=== PATIENT | female | born 1985 | race Caucasian/White ===

== ENCOUNTER → 2021-03-09 | Outpatient (CLI) | payer OTHER | LOC: COL.RAD 03-06 09:00 | DX: R10.11 Right upper quadrant pain (principal) ==

== ENCOUNTER → 2021-03-23 | Outpatient (CLI) | payer OTHER | LOC: COL.RAD 06:38 | DX: K82.8 Other specified diseases of gallbladder (principal) | CPT/HCPCS: A9537; J2805 ==

== ENCOUNTER 2021-04-08 07:36 | Day surgery (SDC) | payer OTHER ==
[~2021-04-08] VITALS: Ht 165.1 cm; Wt 56.8 kg
[2021-04-08] MEDS ORDERED: DECADRON 4MG TAB4 MG PO (08:14)
[2021-04-08] MEDS ORDERED: LEVSIN 0.10.125 MG/T PO (08:14)
[2021-04-08] MEDS ORDERED: PROTONIX 40MG T40 MG PO (08:14)
[2021-04-08 08:15] VITALS: BP 104/68; PULSE 75; TEMP 97.9
[2021-04-08 09:10] VITALS: BP 117/77; PULSE 85; TEMP 97.3
--- NOTE | 2021-04-08 09:10 | NUR ---
The patient arrived back to [facility] from the endoscopy suite at this time. The patient ambulated from the cart to the recliner in her room with the stand by assistance of one nurse and appeared to tolerate the activity well. Vital signs were started at this time. The patient agrees to try some ice water at this time. Call light is within reach. Will continue to monitor the patient.
[2021-04-08 09:25] VITALS: BP 118/83; PULSE 72
--- NOTE | 2021-04-08 09:25 | NUR ---
The patient appears to be tolerating the water well and denies wanting anything further to eat or drink at this time. Will continue to monitor the patient.
[2021-04-08 09:40] VITALS: BP 114/86; PULSE 77
--- NOTE | 2021-04-08 09:40 | NUR ---
Dr. Galvin is at the patient's bedside speaking with the patient and her father regarding the findings of the procedure. Will continue to monitor the patient.
[2021-04-08 09:55] VITALS: BP 121/73; PULSE 80
--- NOTE | 2021-04-08 09:55 | NUR ---
Dicharge instructions were reviewed with the patient and her father at this time. They both verbalized understanding and have no questions for the nurse at this time. The patient's IV to her right wrist was removed and a pressure dressing was applied to the site.
--- NOTE | 2021-04-08 10:00 | NUR ---
The patient was escorted out via wheelchair to a private vehicle by GUSTAVO Stone. The patient's belongings and discharge paperwork were sent with her. The patient's father is present to drive her home.
== END 2021-04-08 10:00 | disposition home or self-care (01) ==
LOC: SDCO 07:36
DX: R10.13 Epigastric pain (principal); K21.9 Gastro-esophageal reflux disease without esophagitis; K44.9 Diaphragmatic hernia without obstruction or gangrene; R94.8 Abnormal results of function studies of other organs and systems; F41.9 Anxiety disorder, unspecified; Z79.899 Other long term (current) drug therapy
CPT/HCPCS: J2704; J7120